=== PATIENT | female | born 1970 | race Caucasian/White ===

== ENCOUNTER 2017-09-21 12:16 | Emergency (ER) | payer SELFPAY ==
[~2017-09-21] VITALS: Ht 160 cm; Wt 52.6 kg
[2017-09-21] MEDS ORDERED: IBUPROFEN 200 MG TAB PO STA (12:30)
[2017-09-21] MEDS ORDERED: TETANUS/DIPHTHERIA TOX ADULT 0.5 ML SYR IM ONE (12:30)
[2017-09-21] MEDS ORDERED: ULTRAM50 MG PO (12:49)
[2017-09-21] MEDS ORDERED: AUGMENTIN 875-1 EACH PO (12:50)
--- NOTE | 2017-09-21 13:38 | Diagnostic Imaging Report ---
PROCEDURE:X-RAY LEFT WRIST, COMPLETE COMPARISON:None. INDICATIONS:Dog bite, left wrist FINDINGS: No acute displaced fracture or dislocation. No lytic or blastic lesion. Normal mineralization. Linear and rounded air foci in the soft tissues surrounding the distal fibular diaphysis, consistent with known dog bite. CONCLUSION: Multiple soft tissue air foci secondary to known dog bite. No underlying bony abnormality. Live Ruiz M.D. Dictated by: Live Ruiz M.D. on 09/21/2017 at 13:46 Electronically approved by: Live Ruiz M.D. on 09/21/2017 at 13:46
[2017-09-21] MEDS ORDERED: CLINDAMYCIN PHOS 600 MG/ 4 ML VIAL IM ONE (14:00)
[2017-09-21 14:53] VITALS: BP 107/84
== END 2017-09-21 15:08 | disposition home or self-care (01) ==
LOC: ER 12:16
DX: S60.872A Other superficial bite of left wrist, initial encounter (principal); L03.114 Cellulitis of left upper limb; W54.0XXA Bitten by dog, initial encounter; Y92.009 Unspecified place in unspecified non-institutional (private) residence as the place of occurrence of the external cause
CPT/HCPCS: 90714; 99283